=== PATIENT | male | born 1945 | race American Indian/Alaskan Native ===

== ENCOUNTER 2016-11-12 08:56 | Day surgery (SDC) | payer MEDICARE ==
[2016-11-12] MEDS ORDERED: WATER FOR IRRIG STERILE IR ONE (09:20)
[2016-11-12] MEDS ORDERED: WATER FOR IRRIG STERILE ONE (09:20)
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
--- NOTE | 2016-11-12 09:44 | Anesthesia Day of Surgery ---
Anesthesia Day of Surgery - Day of Surgery Patient Examined: Yes Patient H&P Reviewed: Yes Patient is NPO: Yes Beta Blockers: No (BP WNL)
[2016-11-12] MEDS ORDERED: NACL 0.9% 1000 ML 1,000 ML ONE (10:28)
[2016-11-12] MEDS ORDERED: DIPRIVAN 10 MG/ML IV ONE ×2 (10:32)
--- NOTE | 2016-11-12 11:31 | Short Stay Summary ---
Short Stay Documentation Date of service: 11/12/16 - History H&P: obtained from office - Allergies and Medications Current Medications: Allergies Iodinated Contrast Media - IV Dye Allergy (Verified 11/12/16 10:07) Nausea/VOMITING, ELVED BP,DIARRHEA Home Medications Medication Instructions Recorded Confirmed Last Taken Type Bimatoprost [Lumigan 0.01%] 1 drop OU DAILY 05/16/14 11/12/16 11/12/16 History RX: Timolol [Betimol] 1 drop OU DAILY 05/16/14 11/12/16 11/12/16 History Atenolol 25 mg PO DAILY 11/12/16 11/12/16 11/10/16 History Glimepiride 2 mg PO DAILY 11/12/16 11/12/16 11/10/16 History Lisinopril 5 mg PO DAILY 11/12/16 11/12/16 11/10/16 History - Brief post op/procedure progress note Date of procedure: 11/12/16 Findings: see dictated report Estimated blood loss: none Pathology: none Condition: stable - Disposition Condition at discharge: Good Disposition: DISCHARGED TO HOME OR SELFCARE - Discharge Diagnoses (1) Family history of malignant neoplasm of colon in first degree relative diagnosed when younger than 60 years of age Status: Acute Short Stay Discharge Plan Activity: advance as tolerated Weight Bearing Status: Non-Weight Bearing Diet: diabetic Follow up with: JALIL HAYWOOD MD [Primary Care Provider] - 7 Days
--- NOTE | 2016-11-12 11:32 | Operative Report ---
Addendum entered and electronically signed by ELLEN PUGA MD 11/12/16 11:14: The polyp was found shortly after the completion of the procedure and was submitted for pathology analysis. Original Note: Operative Report Operative Report: Date of procedure: 11/12/2016 Preprocedure diagnosis: Family history of colon cancer, no prior screening studies. Post procedure diagnosis: Diminutive sigmoid colon polyp, mild diverticulosis of the left colon. Procedure: Colonoscopy to the cecum with cold snare polypectomy. Polyp not retrieved. Endoscopist: Dr. Puga Anesthesia: Monitored anesthesia care per anesthesia department Estimated blood loss: 0 Medications: Monitored anesthesia care. See separate report by anesthesia for details. After careful discussion of the nature and purpose of the procedure as well as details of the technique risks benefits and alternatives the patient gave consent. Please see recent history and physical from the office. The patient was placed in the left lateral decubitus position and medicated per anesthesia. A rectal exam was performed sphincter tone was normal there were no masses palpable. The [employer] 570 scope was passed transanally and advanced under continuous direct vision without difficulty to the cecum. The colon was well prepared. The cecum was normal. The ascending colon was normal and on forward and retroflexed views. The transverse colon was normal. Scattered diverticula in the descending and sigmoid colon. A diminutive sessile sigmoid polyp was found and removed with the cold snare. The polyp however was fragmented and could not be retrieved. The rectum was normal on forward and retroflexed views. The procedure was well-tolerated overall and the patient was observed in recovery. Conclusions: Diminutive sigmoid polyp removed but not retrieved. Mild left colon diverticulosis. Plan: Repeat colonoscopy in 5 years in light of family history of colon cancer and personal history of polyp. Signed electronically: Ellen Puga M.D.
[2016-11-12 11:34] VITALS: BP 121/80
--- NOTE | 2016-11-12 12:31 | Post Anesthesia Evaluation ---
- Post Anesthesia Evaluation Patient Participated: Yes Airway Patent: Yes Stable Respiratory Function: Yes Nausea/Vomiting: No Temp > 96.8F: Yes Pain Manageable: Yes Adequeate Hydration: Yes Anesthesia Complications: No Block Receding Appropriately: Not Applicable Patient on Ventilator: No
[2016-11-12] MEDS ORDERED: NACL 0.9% 1000 ML 1,000 ML IV SCH (13:00)
== END 2016-11-12 08:57 | disposition home or self-care (01) ==
LOC: GIO 08:56
PROVIDERS: ATTEND Internal Medicine Gastroenterology
DX: K63.5 Polyp of colon (principal); K57.30 Diverticulosis of large intestine without perforation or abscess without bleeding; I10 Essential (primary) hypertension; E11.9 Type 2 diabetes mellitus without complications; H40.9 Unspecified glaucoma; Z87.891 Personal history of nicotine dependence; Z86.69 Personal history of other diseases of the nervous system and sense organs; Z98.890 Other specified postprocedural states; Z83.3 Family history of diabetes mellitus; Z83.71 Family history of colonic polyps; Z80.3 Family history of malignant neoplasm of breast; Z80.0 Family history of malignant neoplasm of digestive organs
CPT/HCPCS: 45385; 88305; J2704; J7030